=== PATIENT | female | born 1985 | race American Indian/Alaskan Native ===

== ENCOUNTER 2018-01-13 00:34 | Emergency (ER) | payer SELFPAY ==
[2018-01-13 01:50] LABS: Basophils % (Auto) 0.4 % (0.0-1.8); Eosinophils % (Auto) 0.2 % (0.0-4.3); Hematocrit 28.1 % (30.3-42.9); Hemoglobin 8.9 gm/dl (10.1-14.3); Lymphocytes # (Auto) 1.1 K/mm3 (1.2-5.4); Lymphocytes % (Auto) 12.2 % (13.4-35.0); Mean Corpuscular HGB Conc 32 % (30-34); Mean Corpuscular Volume 74 fl (79-97); Monocytes # (Auto) 0.4 K/mm3 (0.0-0.8); Monocytes % (Auto) 4.2 % (0.0-7.3); Platelet Count 265 K/mm3 (140-440); Red Blood Count 3.79 M/mm3 (3.65-5.03); Red Cell Distribution Width 17.1 % (13.2-15.2)
[2018-01-13 02:01] LABS: BUN/Creatinine Ratio 21; Blood Urea Nitrogen 15 mg/dL (7-17); Calcium 8.2 mg/dL (8.4-10.2); Hemolysis Index 0
[2018-01-13 02:10] LABS: Bilirubin,Urine NEG (Negative); Blood,Urine NEG (Negative); Color,Urine Yellow (Yellow); Mucus,Urine FEW /HPF; Protein,Urine <15 mg/dL mg/dL (Negative); Urobilinogen,Urine < 2.0 mg/dL (<2.0)
[2018-01-13 02:17] LABS: Mean Corpuscular Hemoglobin 24 pg (28-32)
[2018-01-13 02:25] LABS: Amphetamine Screen,Urine PRESUMPTIVE NEGATIVE; Benzodiazepines Screen,Urine PRESUMPTIVE NEGATIVE; Cannabinoid Screen,Urine PRESUMPTIVE NEGATIVE; Cocaine Screen,Urine PRESUMPTIVE NEGATIVE; Methadone Screen,Urine PRESUMPTIVE NEGATIVE; Opiate Screen,Urine PRESUMPTIVE NEGATIVE
[2018-01-13 03:26] VITALS: BP 140/84
--- NOTE | 2018-01-13 06:07 | Emergency Department Report ---
ED Alcohol HPI - General Chief Complaint: Alcohol Stated Complaint: AMS Time Seen by Provider: 01/13/18 01:29 Source: EMS Mode of arrival: Stretcher Limitations: Altered Mental Status - History of Present Illness Initial Comments: 32-year-old female with a past medical history asthma and heart palpitations since the hospital with complaints of acute alcohol intoxication. Apparently EMS was called out to a sports caf bar. Patient had been drinking a lot of alcohol and became unresponsive. Patient initially presented here responsive only to painful stimuli. At time of my evaluation patient is more responsive although drowsy. Oriented 3. Family at the bedside states that she has been intermittently speaking to them between sleeping. No pain reported. They state the patient does not drink alcohol on a daily basis. - Related Data Home Medications Medication Instructions Recorded Confirmed Last Taken ALBUTEROL Inhaler [ProAir HFA 2 puff IH Q6H PRN 09/04/13 09/04/13 Unknown Inhaler] Allergies Allergy/AdvReac Type Severity Reaction Status Date / Time Penicillins Allergy Angioedema Verified 09/04/13 21:38 ED Review of Systems ROS: Stated complaint: AMS Other details as noted in HPI Comment: All other systems reviewed and negative ED Past Medical Hx - Past Medical History Hx Asthma: Yes Additional medical history: Heart palpitations - Surgical History Additional Surgical History: Rods in back to correct scoliosis - Social History Smoking Status: Unknown if ever smoked Substance Use Type: Alcohol - Medications Home Medications: Home Medications Medication Instructions Recorded Confirmed Last Taken Type ALBUTEROL Inhaler [ProAir HFA 2 puff IH Q6H PRN 09/04/13 09/04/13 Unknown History Inhaler] ED Physical Exam - General Limitations: Altered Mental Status - Other Other exam information: General: No limitations, patient is alert in no acute distress Head exam: Atraumatic, normocephalic Eyes exam: Normal appearance, pupils equal reactive to light ENT: Moist mucous membrane, normal oropharynx Neck exam: Normal inspection, full range of motion, no meningismus nontender Respiratory exam: Clear to auscultation bilateral, no wheezes, rales, crackles Cardiovascular: Normal rate and rhythm, normal heart sounds Abdomen: Soft, nondistended, and nontender, with normal bowel sounds, no rebound, or guarding Extremity: Full range of motion normal inspection no deformity Back: Normal Inspection, full range of motion, no tenderness Neurologic: Sleepy but arousable to tactile stimulation, oriented x3, cranial nerves intact, no motor or sensory deficit Psychiatric: normal affect, normal mood Skin: Warm, dry, intact ED Course Vital Signs 01/13/18 01/13/18 01/13/18 01:00 01:20 01:30 Temperature 98.6 F Pulse Rate 70 70 60 Respiratory 19 14 20 Rate Blood Pressure 97/54 Blood Pressure 102/56 [Left] O2 Sat by Pulse 100 100 Oximetry 01/13/18 01/13/18 01/13/18 02:00 02:30 03:00 Temperature Pulse Rate 68 71 81 Respiratory 22 22 19 Rate Blood Pressure 89/44 95/49 140/84 Blood Pressure [Left] O2 Sat by Pulse 100 100 100 Oximetry 01/13/18 04:00 Temperature Pulse Rate Respiratory Rate Blood Pressure 140/84 Blood Pressure [Left] O2 Sat by Pulse 99 Oximetry - Reevaluation(s) Reevaluation #1: 01/13/18 06:05 Patient did receive normal saline in the ED ED Medical Decision Making - Lab Data Result diagrams: 01/13/18 01:25 01/13/18 01:25 Lab Results 01/13/18 01/13/18 01/13/18 Range/Units 01:18 01:18 01:25 WBC (4.5-11.0) K/mm3 RBC (3.65-5.03) M/mm3 Hgb (10.1-14.3) gm/dl Hct (30.3-42.9) % MCV (79-97) fl MCH (28-32) pg MCHC (30-34) % RDW (13.2-15.2) % Plt Count (140-440) K/mm3 Lymph % (Auto) (13.4-35.0) % [place] % (Auto) (0.0-7.3) % Eos % (Auto) (0.0-4.3) % Baso % (Auto) (0.0-1.8) % Lymph # (1.2-5.4) K/mm3 [place] # (0.0-0.8) K/mm3 Eos # (0.0-0.4) K/mm3 Baso # (0.0-0.1) K/mm3 Seg Neutrophils % (40.0-70.0) % Seg Neutrophils # (1.8-7.7) K/mm3 Sodium (137-145) mmol/L Potassium (3.6-5.0) mmol/L Chloride (98-107) mmol/L Carbon Dioxide (22-30) mmol/L Anion Gap mmol/L BUN (7-17) mg/dL Creatinine (0.7-1.2) mg/dL Estimated GFR ml/min BUN/Creatinine Ratio % Glucose (65-100) mg/dL Calcium (8.4-10.2) mg/dL HCG, Qual (Negative) Urine Color Yellow (Yellow) Urine Turbidity Clear (Clear) Urine pH 5.0 (5.0-7.0) Ur Specific [place] 1.009 (1.003-1.030) Urine Protein <15 mg/dl (Negative) mg/dL Urine Glucose (UA) Neg (Negative) mg/dL Urine Ketones Neg (Negative) mg/dL Urine Blood Neg (Negative) Urine Nitrite Neg (Negative) Urine Bilirubin Neg (Negative) Urine Urobilinogen < 2.0 (<2.0) mg/dL Ur Leukocyte Esterase Neg (Negative) Urine WBC (Auto) 1.0 (0.0-6.0) /HPF Urine RBC (Auto) 5.0 (0.0-6.0) /HPF Urine Mucus Few /HPF Salicylates < 0.3 L (2.8-20.0) mg/dL Urine Opiates Screen Presumptive negative Urine Methadone Screen Presumptive negative Acetaminophen (10.0-30.0) ug/mL Ur Barbiturates Screen Presumptive negative Ur Phencyclidine Scrn Presumptive negative Ur Amphetamines Screen Presumptive negative U Benzodiazepines Scrn Presumptive negative Urine Cocaine Screen Presumptive negative U Marijuana (THC) Screen Presumptive negative Drugs of Abuse Note Disclamer Plasma/Serum Alcohol (0-0.07) % 01/13/18 01/13/18 01/13/18 Range/Units 01:25 01:25 01:25 WBC (4.5-11.0) K/mm3 RBC (3.65-5.03) M/mm3 Hgb (10.1-14.3) gm/dl Hct (30.3-42.9) % MCV (79-97) fl MCH (28-32) pg MCHC (30-34) % RDW (13.2-15.2) % Plt Count (140-440) K/mm3 Lymph % (Auto) (13.4-35.0) % [place] % (Auto) (0.0-7.3) % Eos % (Auto) (0.0-4.3) % Baso % (Auto) (0.0-1.8) % Lymph # (1.2-5.4) K/mm3 [place] # (0.0-0.8) K/mm3 Eos # (0.0-0.4) K/mm3 Baso # (0.0-0.1) K/mm3 Seg Neutrophils % (40.0-70.0) % Seg Neutrophils # (1.8-7.7) K/mm3 Sodium 140 (137-145) mmol/L Potassium 3.7 (3.6-5.0) mmol/L Chloride 103.1 (98-107) mmol/L Carbon Dioxide 22 (22-30) mmol/L Anion Gap 19 mmol/L BUN 15 (7-17) mg/dL Creatinine 0.7 (0.7-1.2) mg/dL Estimated GFR > 60 ml/min BUN/Creatinine Ratio 21 % Glucose 104 H (65-100) mg/dL Calcium 8.2 L (8.4-10.2) mg/dL HCG, Qual (Negative) Urine Color (Yellow) Urine Turbidity (Clear) Urine pH (5.0-7.0) Ur Specific [place] (1.003-1.030) Urine Protein (Negative) mg/dL Urine Glucose (UA) (Negative) mg/dL Urine Ketones (Negative) mg/dL Urine Blood (Negative) Urine Nitrite (Negative) Urine Bilirubin (Negative) Urine Urobilinogen (<2.0) mg/dL Ur Leukocyte Esterase (Negative) Urine WBC (Auto) (0.0-6.0) /HPF Urine RBC (Auto) (0.0-6.0) /HPF Urine Mucus /HPF Salicylates (2.8-20.0) mg/dL Urine Opiates Screen Urine Methadone Screen Acetaminophen < 5.0 L (10.0-30.0) ug/mL Ur Barbiturates Screen Ur Phencyclidine Scrn Ur Amphetamines Screen U Benzodiazepines Scrn Urine Cocaine Screen U Marijuana (THC) Screen Drugs of Abuse Note Plasma/Serum Alcohol 0.23 H (0-0.07) % 01/13/18 01/13/18 Range/Units 01:25 01:25 WBC 9.1 (4.5-11.0) K/mm3 RBC 3.79 (3.65-5.03) M/mm3 Hgb 8.9 L (10.1-14.3) gm/dl Hct 28.1 L (30.3-42.9) % MCV 74 L (79-97) fl MCH 24 L (28-32) pg MCHC 32 (30-34) % RDW 17.1 H (13.2-15.2) % Plt Count 265 (140-440) K/mm3 Lymph % (Auto) 12.2 L (13.4-35.0) % [place] % (Auto) 4.2 (0.0-7.3) % Eos % (Auto) 0.2 (0.0-4.3) % Baso % (Auto) 0.4 (0.0-1.8) % Lymph # 1.1 L (1.2-5.4) K/mm3 [place] # 0.4 (0.0-0.8) K/mm3 Eos # 0.0 (0.0-0.4) K/mm3 Baso # 0.0 (0.0-0.1) K/mm3 Seg Neutrophils % 83.0 H (40.0-70.0) % Seg Neutrophils # 7.6 (1.8-7.7) K/mm3 Sodium (137-145) mmol/L Potassium (3.6-5.0) mmol/L Chloride (98-107) mmol/L Carbon Dioxide (22-30) mmol/L Anion Gap mmol/L BUN (7-17) mg/dL Creatinine (0.7-1.2) mg/dL Estimated GFR ml/min BUN/Creatinine Ratio % Glucose (65-100) mg/dL Calcium (8.4-10.2) mg/dL HCG, Qual Negative (Negative) Urine Color (Yellow) Urine Turbidity (Clear) Urine pH (5.0-7.0) Ur Specific [place] (1.003-1.030) Urine Protein (Negative) mg/dL Urine Glucose (UA) (Negative) mg/dL Urine Ketones (Negative) mg/dL Urine Blood (Negative) Urine Nitrite (Negative) Urine Bilirubin (Negative) Urine Urobilinogen (<2.0) mg/dL Ur Leukocyte Esterase (Negative) Urine WBC (Auto) (0.0-6.0) /HPF Urine RBC (Auto) (0.0-6.0) /HPF Urine Mucus /HPF Salicylates (2.8-20.0) mg/dL Urine Opiates Screen Urine Methadone Screen Acetaminophen (10.0-30.0) ug/mL Ur Barbiturates Screen Ur Phencyclidine Scrn Ur Amphetamines Screen U Benzodiazepines Scrn Urine Cocaine Screen U Marijuana (THC) Screen Drugs of Abuse Note Plasma/Serum Alcohol (0-0.07) % - Medical Decision Making Labs consistent with acute alcohol intoxication with gradual improvement in mental status in the ED. Patient may be discharged when ambulatory. Mother on standby to come back to picker / packer patient from the ED. Patient sign out to Dr Quesada discharge once mental status at baseline and patient has a steady gait - Differential Diagnosis drug intoxication, alcohol intoxication, encephalopathy Critical Care Time: No Critical care attestation.: If time is entered above; I have spent that time in minutes in the direct care of this critically ill patient, excluding procedure time. ED Disposition Clinical Impression: Acute alcohol intoxication Disposition: DC-01 TO HOME OR SELFCARE Is pt being admited?: No Does the pt Need Aspirin: No Condition: Stable Instructions: Alcohol Intoxication (ED) Additional Instructions: Follow up with your primary care doctor or the doctor provided. Return is symptoms worsen as indicated by your discharge instructions. Referrals: PRIMARY CARE, [Primary Care Provider] - 3-5 Days WHIT HELLER MD [Staff Physician] - 3-5 Days Time of Disposition: 06:08 (s/o to DR Quesada, d/c when clinically sober)
--- NOTE | 2018-01-13 06:52 | Emergency Department Report ---
HPI - General Chief Complaint: Alcohol Time Seen by Provider: 01/13/18 01:29 - HPI HPI: Patient was signed out to me by Dr. Hartman at shift change pending sobriety. On reevaluation patient is completely sober. She is able to answer all my questions correctly and she ambulated in the emergency room without problems. Her mom is at her bedside and she wants to take her home. Patient says she is not a chronic alcoholic. However, last night she has some alcohol with some friends. She denies any medical complaints currently. I will go ahead and discharge her home in the custody of trauma. I also counseled her to stop drinking alcohol. ED Past Medical Hx - Past Medical History Hx Asthma: Yes Additional medical history: Heart palpitations - Surgical History Additional Surgical History: Rods in back to correct scoliosis - Social History Smoking Status: Unknown if ever smoked Substance Use Type: Alcohol - Medications Home Medications: Home Medications Medication Instructions Recorded Confirmed Last Taken Type ALBUTEROL Inhaler [ProAir HFA 2 puff IH Q6H PRN 09/04/13 09/04/13 Unknown History Inhaler] ED Review of Systems ROS: Stated complaint: AMS Other details as noted in HPI Physical Exam - Physical Exam Vital Signs: Vital Signs 01/13/18 01/13/18 01/13/18 01:00 01:20 01:30 Temperature 98.6 F Pulse Rate 70 70 60 Respiratory 19 14 20 Rate Blood Pressure 97/54 Blood Pressure 102/56 [Left] O2 Sat by Pulse 100 100 Oximetry 01/13/18 01/13/18 01/13/18 02:00 02:30 03:00 Temperature Pulse Rate 68 71 81 Respiratory 22 22 19 Rate Blood Pressure 89/44 95/49 140/84 Blood Pressure [Left] O2 Sat by Pulse 100 100 100 Oximetry 01/13/18 04:00 Temperature Pulse Rate Respiratory Rate Blood Pressure 140/84 Blood Pressure [Left] O2 Sat by Pulse 99 Oximetry ED Course Vital Signs 01/13/18 01/13/18 01/13/18 01:00 01:20 01:30 Temperature 98.6 F Pulse Rate 70 70 60 Respiratory 19 14 20 Rate Blood Pressure 97/54 Blood Pressure 102/56 [Left] O2 Sat by Pulse 100 100 Oximetry 01/13/18 01/13/18 01/13/18 02:00 02:30 03:00 Temperature Pulse Rate 68 71 81 Respiratory 22 22 19 Rate Blood Pressure 89/44 95/49 140/84 Blood Pressure [Left] O2 Sat by Pulse 100 100 100 Oximetry 01/13/18 04:00 Temperature Pulse Rate Respiratory Rate Blood Pressure 140/84 Blood Pressure [Left] O2 Sat by Pulse 99 Oximetry ED Medical Decision Making - Lab Data Result diagrams: 01/13/18 01:25 01/13/18 01:25 Critical care attestation.: If time is entered above; I have spent that time in minutes in the direct care of this critically ill patient, excluding procedure time. ED Disposition Clinical Impression: Acute alcohol intoxication Disposition: DC-01 TO HOME OR SELFCARE Is pt being admited?: No Does the pt Need Aspirin: No Condition: Stable Instructions: Alcohol Intoxication (ED) Additional Instructions: Follow up with your primary care doctor or the doctor provided. Return is symptoms worsen as indicated by your discharge instructions. Referrals: WHIT HELLER MD [Staff Physician] - 3-5 Days PRIMARY CAREMD [Primary Care Provider] - 3-5 Days Time of Disposition: 06:52
== END 2018-01-13 07:08 | disposition home or self-care (01) ==
LOC: ED 00:34
DX: F10.129 Alcohol abuse with intoxication, unspecified (principal); J45.909 Unspecified asthma, uncomplicated; Z79.899 Other long term (current) drug therapy; Z88.0 Allergy status to penicillin
CPT/HCPCS: 36415; 80048; 80307; 81001; 84703; 85025; 99283; G0480; 80320